=== PATIENT | female | born 1995 | race Two or more races ===

== ENCOUNTER 2024-03-27 09:32 | Emergency (ER) | payer MEDICAID ==
[~2024-03-27] VITALS: Ht 154.9 cm; Wt 65.3 kg
[2024-03-27 10:41] LABS: Chloride 107 mmol/L (98-107); Potassium 4.2 mmol/L (3.5-5.1); Sodium 138 mmol/L (136-145)
[2024-03-27 10:42] LABS: Anion Gap 2 (5-15); Carbon Dioxide 29 mmol/L (20-30)
[2024-03-27 10:43] LABS: Calcium 9.7 mg/dL (8.5-10.1)
[2024-03-27 10:47] LABS: BUN/Creatinine Ratio 17.2 (10.0-20.0); Blood Urea Nitrogen 11 mg/dL (9-23); Glucose 94 mg/dL (74-106)
[2024-03-27 11:02] LABS: Urine Bacteria FEW /hpf (None Seen); Urine Blood 1+ /uL (Negative); Urine Clarity Clear (Clear); Urine Color Light-Yellow (Yellow); Urine Mucus FEW (None Seen); Urine Protein, UAD Negative (Negative); Urine Specific Gravity 1.023 (1.001-1.035); Urine Urobilinogen Normal (Negative); Urine WBC 5 /hpf (0 - 5)
[2024-03-27 11:43] LABS: Basophils # (auto) 0 10 ^3/uL (0-0.2); Basophils % (auto) 0.9 % (0.0-2.0); Eosinophils # (auto) 0.5 10 ^3/uL (0-0.8); Hematocrit 39.8 % (36.0-46.0); Hemoglobin 13.5 g/dL (12.2-16.2); Lymphocytes # (auto) 1.5 10 ^3/uL (0.4-5.4); Lymphocytes % (auto) 28.5 % (10.0-50.0); Mean Corpuscular Hemoglobin 30.3 pg (28.0-32.0); Mean Corpuscular Volume 88.9 fL (80.0-100.0); Monocytes # (auto) 0.4 10 ^3/uL (0-1.3); Monocytes % (auto) 8.1 % (0.0-12.0); Neutrophils # (auto) 2.8 10 ^3/uL (1.6-8.6); Neutrophils % (auto) 52.5 % (37.0-80.0); Nucleated Red Blood Cells % 0.2 %; Red Blood Cells 4.48 10^6/uL (4.0-5.20); White Blood Cell 5.3 10^3/uL (4.4-10.8)
[2024-03-27] MEDS ORDERED: HYDR25SU21 PR (13:11)
[2024-03-27 13:37] VITALS: BP 115/72; PULSE 79; RESP 19; TEMP 98.1; O2SAT 100
== END 2024-03-27 13:39 | disposition home or self-care (01) ==
LOC: ER 09:32
DX: K92.2 Gastrointestinal hemorrhage, unspecified (principal); K64.9 Unspecified hemorrhoids; Z32.02 Encounter for pregnancy test, result negative
CPT/HCPCS: 36415; 74176; 80048; 81001; 81025; 85025

== ENCOUNTER 2024-05-09 18:10 | Inpatient (IN) | payer MEDICAID ==
[~2024-05-09] VITALS: Ht 154.9 cm; Wt 68.0 kg
[~2024-05-09 18:10] MED LIST: HYDR25SU21 PR
[2024-05-09 18:58] LABS: Urine Bacteria MOD /hpf (None Seen); Urine Blood 2+ /uL (Negative); Urine Clarity Turbid (Clear); Urine Color Light-Orange (Yellow); Urine Mucus FEW (None Seen); Urine Protein, UAD 1+ (Negative); Urine Specific Gravity 1.018 (1.001-1.035); Urine Urobilinogen Normal (Negative); Urine WBC 27 /hpf (0 - 5)
[2024-05-09 19:30] LABS: Basophils # (auto) 0.1 10 ^3/uL (0-0.2); Basophils % (auto) 0.4 % (0.0-2.0); Eosinophils % (auto) 14.9 % (0.0-7.0); Hemoglobin 13.1 g/dL (12.2-16.2); Lymphocytes # (auto) 1.8 10 ^3/uL (0.4-5.4); Lymphocytes % (auto) 13.9 % (10.0-50.0); Mean Corpuscular Hgb Conc. 34.6 g/dL (32.0-36.0); Mean Corpuscular Volume 86.8 fL (80.0-100.0); Monocytes # (auto) 0.5 10 ^3/uL (0-1.3); Monocytes % (auto) 4.1 % (0.0-12.0); Neutrophils # (auto) 8.8 10 ^3/uL (1.6-8.6); Neutrophils % (auto) 66.7 % (37.0-80.0); Nucleated Red Blood Cells % 0.2 %; Red Blood Cells 4.37 10^6/uL (4.0-5.20); Red Cell Distribution Width 13.2 % (11.8-14.3); White Blood Cell 13.3 10^3/uL (4.4-10.8)
[2024-05-09 19:34] LABS: Chloride 101 mmol/L (98-107); Potassium 3.5 mmol/L (3.5-5.1); Sodium 134 mmol/L (136-145)
[2024-05-09 19:35] LABS: Anion Gap 7 (5-15); Calcium 8.9 mg/dL (8.7-10.4); Carbon Dioxide 26 mmol/L (20-30)
[2024-05-09 19:40] LABS: Glucose 94 mg/dL (74-106)
[2024-05-09 19:47] LABS: BUN/Creatinine Ratio 8.5 (10.0-20.0); Blood Urea Nitrogen < 5 mg/dL (9-23)
[2024-05-09 21:15] VITALS: PULSE 115; RESP 20; O2SAT 97
[2024-05-09] MEDS: LACTATED RINGER'S 1,000 ML IV ONE (21:15)
[2024-05-09] MEDS: metroNIDAZOLE 500MG/100ML 100 ML IV SCH (21:15)
[2024-05-09] MEDS ORDERED: ONDANSETRON HCL 4 MG/2 ML VIAL IV PRN (21:15)
[2024-05-09] MEDS: HYDROcodone-ACET 5/325MG TAB PO PRN (21:27)
[2024-05-09] MEDS: cefTRIAXone 1GM/50ML D5W 50 ML IV ONE (22:26)
[2024-05-09] MEDS: SODIUM CHLORIDE 0.9% 1,000 ML IV ONE (22:26)
[2024-05-09] MEDS: SODIUM CHLOR 0.9% PF (SALINE LOCK) 10ML VIAL/SYR IV SCH (22:26)
[2024-05-09] MEDS: IOHEXOL 300 MG/ML 100ML BOTTLE IJ ONE (22:51)
[2024-05-09] MEDS: metroNIDAZOLE 500MG/100ML 100 ML IV ONE (23:13)
[2024-05-09 23:33] VITALS: PULSE 99; RESP 18
[2024-05-10] MEDS: HYDROmorphone HCL 2 MG/ML VL/or syr IV PRN (00:34)
[2024-05-10 01:00] VITALS: BP 105/66; PULSE 92; RESP 16; TEMP 98.4; O2SAT 99
[2024-05-10 05:00] VITALS: BP 91/57; PULSE 101; RESP 17; TEMP 98.6; O2SAT 97
[2024-05-10 08:44] VITALS: BP 101/56; PULSE 99; RESP 17; TEMP 97.5; O2SAT 95
[2024-05-10] MEDS: cefTRIAXone 1GM/50ML D5W 50 ML IV SCH (09:27)
[2024-05-10] MEDS: ENOXAPARIN SOD 40 MG/0.4 ML SYRINGE SC SCH (09:28)
[2024-05-10 12:52] VITALS: BP 95/53; PULSE 99; RESP 17; TEMP 98.4; O2SAT 100
[2024-05-10 13:56] LABS: Erythrocyte Sedimentation Rate 36 mm/hr (0-20)
[2024-05-10] MEDS ORDERED: IBUPROFEN 400 MG TAB PO PRN (16:15)
[2024-05-10] MEDS: SODIUM CHLORIDE 0.9% 1,000 ML IV ONE (16:41)
[2024-05-10 16:45] LABS: Albumin 3.1 g/dL (3.2-4.8); Alkaline Phosphatase 54 U/L (46-116); Anion Gap 9 (5-15); Aspartate Aminotransferase < 8 U/L (13-40); Calcium 7.8 mg/dL (8.7-10.4); Carbon Dioxide 23 mmol/L (20-30); Chloride 104 mmol/L (98-107); Glucose 78 mg/dL (74-106); Potassium 3.5 mmol/L (3.5-5.1); Sodium 136 mmol/L (136-145)
[2024-05-10 16:46] LABS: Alanine Aminotransferase < 9 U/L (7-40); BUN/Creatinine Ratio 10.4 (10.0-20.0); Bilirubin, Total 0.3 mg/dL (0.2-1.0); Blood Urea Nitrogen < 5 mg/dL (9-23); Total Protein 5.5 g/dL (5.7-8.2)
[2024-05-10 17:18] VITALS: BP 94/52; PULSE 93; RESP 15; TEMP 98.7; O2SAT 94
[2024-05-10] MEDS: KETOROLAC TROMETH 30 MG/ML 1ML VIAL IV PRN (18:50)
[2024-05-10 21:00] VITALS: BP 97/58; PULSE 89; RESP 16; TEMP 98.1; O2SAT 97
[2024-05-10 22:08] LABS: COVID19 ANTIGEN SOFIA FIA NEGATIVE (NEGATIVE)
[2024-05-10] MEDS: metroNIDAZOLE 500MG/100ML 100 ML IV SCH (23:46)
[2024-05-11] VITALS (7 sets, daily range): BP systolic 94–99; BP diastolic 48–59; PULSE 83–128; RESP 16–20; TEMP 98.2–101.2; O2SAT 94–100
[2024-05-11 00:28] LABS: Amphetamine Screen, Urine Neg (NEGATIVE); Barbiturate Scree,Urine Neg (NEGATIVE); Benzodiazephine Screen, Urine Neg (NEGATIVE); Cocaine Screen, Urine Neg (NEGATIVE); Opiate Scree,Urine Neg (NEGATIVE)
[2024-05-11 00:29] LABS: Cannabinoid Screen, Urine Pos (NEGATIVE); Phencyclidine Screen, Urine Neg (NEGATIVE)
[2024-05-11 07:28] LABS: Anion Gap 8 (5-15); Calcium 7.9 mg/dL (8.7-10.4); Carbon Dioxide 24 mmol/L (20-30); Chloride 107 mmol/L (98-107); Potassium 3.3 mmol/L (3.5-5.1); Sodium 139 mmol/L (136-145)
[2024-05-11 07:34] LABS: Glucose 71 mg/dL (74-106)
[2024-05-11 07:42] LABS: Hematocrit 29.2 % (36.0-46.0); Hemoglobin 10.2 g/dL (12.2-16.2); Mean Corpuscular Hemoglobin 30.4 pg (28.0-32.0); Mean Corpuscular Hgb Conc. 34.9 g/dL (32.0-36.0); Mean Corpuscular Volume 86.9 fL (80.0-100.0); Red Blood Cells 3.36 10^6/uL (4.0-5.20); Red Cell Distribution Width 12.9 % (11.8-14.3); White Blood Cell 8.3 10^3/uL (4.4-10.8)
[2024-05-11 07:44] LABS: BUN/Creatinine Ratio 10.2 (10.0-20.0); Blood Urea Nitrogen < 5 mg/dL (9-23)
[2024-05-11 07:59] LABS: Band Neutrophils % (manual) 0; Basophils % (manual) 0 (0.0-2.0); Blast Cells 0; Metamyelocytes % 0; Myelocytes % 0; Promyelocytes % 0; Reactive Lymphocytes 0
[2024-05-11 09:55] LABS: Hepatitis B Surface Antigen Negative (Negative)
[2024-05-11 10:16] LABS: Hepatitis A Ab IgM Negative; Hepatitis B Core IgM Negative
[2024-05-11 10:17] LABS: Hepatitis C Antibody Negative (Negative)
[2024-05-11] MEDS: PANTOPRAZOLE 40 MG TAB PO ONE (11:03)
[2024-05-11] MEDS: POTASSIUM CHLORIDE 8 MEQ TAB PO ONE (11:04)
[2024-05-11] MEDS: MORPHINE SULFATE INJ 2 MG/ml SYRG IV PRN (11:05)
[2024-05-11 12:05] LABS: Eosinophils % (manual) 14 (0-7); Lymphocytes % (manual) 10 (10.0-50.0); Monocytes % (manual) 6 (0-12)
[2024-05-11 12:06] LABS: Platelet Estimate Adequate
[2024-05-11] MEDS: PANTOPRAZOLE 40 MG TAB PO SCH (17:09)
[2024-05-11] MEDS: CYANOCOBALAMIN (B-12) 1000 MCG/1 ML VIAL IM ONE (17:09)
[2024-05-11] MEDS: ERGOCALCIFEROL 50,000 UNIT(1.25MG) CAP PO SCH (17:09)
[2024-05-11] MEDS: POTASSIUM CHL 10 Meq TABLET PO ONE (17:09)
[2024-05-11] MEDS: ACETAMINOPHEN 325 MG TAB PO PRN (20:15)
[2024-05-12 01:00] VITALS: BP 95/58; PULSE 99; RESP 18; TEMP 98.1; O2SAT 99
[2024-05-12 05:00] VITALS: BP 92/56; PULSE 97; RESP 16; TEMP 98.4; O2SAT 98
[2024-05-12 07:33] LABS: Anion Gap 9 (5-15); Carbon Dioxide 20 mmol/L (20-30); Chloride 109 mmol/L (98-107); Potassium 3.5 mmol/L (3.5-5.1); Sodium 138 mmol/L (136-145)
[2024-05-12 07:34] LABS: Calcium 8.1 mg/dL (8.7-10.4)
[2024-05-12 07:39] LABS: Glucose 76 mg/dL (74-106)
[2024-05-12 07:43] LABS: Basophils # (auto) 0 10 ^3/uL (0-0.2); Basophils % (auto) 0.5 % (0.0-2.0); Eosinophils # (auto) 1.5 10 ^3/uL (0-0.8); Hemoglobin 10.6 g/dL (12.2-16.2); Lymphocytes # (auto) 0.8 10 ^3/uL (0.4-5.4); Mean Corpuscular Hgb Conc. 34.2 g/dL (32.0-36.0); Mean Corpuscular Volume 87.6 fL (80.0-100.0); Monocytes # (auto) 0.4 10 ^3/uL (0-1.3); Neutrophils # (auto) 4.7 10 ^3/uL (1.6-8.6); Neutrophils % (auto) 62.7 % (37.0-80.0); Nucleated Red Blood Cells % 0.1 %; Red Blood Cells 3.54 10^6/uL (4.0-5.20); Red Cell Distribution Width 13.2 % (11.8-14.3); White Blood Cell 7.4 10^3/uL (4.4-10.8)
[2024-05-12 07:44] LABS: BUN/Creatinine Ratio 10.2 (10.0-20.0); Blood Urea Nitrogen < 5 mg/dL (9-23)
[2024-05-12 07:46] LABS: Eosinophils % (auto) 19.8 % (0.0-7.0)
[2024-05-12 09:00] VITALS: BP 92/59; PULSE 84; RESP 20; TEMP 98; O2SAT 95
[2024-05-12] MEDS: POTASSIUM CHL 10 Meq TABLET PO SCH (09:12)
[2024-05-12 13:00] VITALS: BP 95/58; PULSE 90; RESP 20; TEMP 97.8; O2SAT 100
[2024-05-12] MEDS: CALCIUM GLUC 1,000mg/50ml-NS 50 ML IV ONE (14:52)
[2024-05-12 17:00] VITALS: BP 103/60; PULSE 89; RESP 20; TEMP 97.8; O2SAT 99
[2024-05-12] MEDS: GOLYTELY 4L KIT PO ONE (18:44)
[2024-05-12 21:00] VITALS: BP 99/63; PULSE 100; RESP 20; TEMP 97.6; O2SAT 99
[2024-05-13] VITALS (7 sets, daily range): BP systolic 91–106; BP diastolic 59–70; PULSE 84–104; RESP 16–20; TEMP 97.6–98.1; O2SAT 95–100
[2024-05-13] MEDS: MAGNESIUM CITRATE SOLUTION 300 ML BTL PO ONE (05:37)
[2024-05-13] MEDS: GOLYTELY 4L KIT PO ONE (05:38)
[2024-05-13 07:51] LABS: INR 1.12 (0.9-1.15); Partial Thromboplastin Time 23.4 SEC (24.5-34.5); Prothrombin Time 11.8 sec (9.3-11.8)
[2024-05-13 08:05] LABS: Chloride 105 mmol/L (98-107); Potassium 3.3 mmol/L (3.5-5.1); Sodium 138 mmol/L (136-145)
[2024-05-13 08:06] LABS: Anion Gap 14 (5-15); Carbon Dioxide 19 mmol/L (20-30)
[2024-05-13 08:11] LABS: Glucose 69 mg/dL (74-106)
[2024-05-13 08:18] LABS: Erythrocyte Sedimentation Rate 43 mm/hr (0-20)
[2024-05-13 08:20] LABS: BUN/Creatinine Ratio 10.4 (10.0-20.0); Blood Urea Nitrogen < 5 mg/dL (9-23)
[2024-05-13 08:22] LABS: CRP High Sensitivity 5.22 mg/dL (<1.0)
[2024-05-13] MEDS: CYANOCOBALAMIN 500 MCG TAB PO SCH (10:00)
[2024-05-13] MEDS: FLORASTOR (S. BOULARDII) 250 MG CAP PO SCH ×2 (10:34→10:37)
[2024-05-13] MEDS: MAGNESIUM SULFATE 1GM/100ML 100 ML IV ONE (11:00)
[2024-05-13] MEDS ORDERED: LIDOCAINE VISCOUS 2% 15ML UD ONE (11:29)
[2024-05-13] MEDS ORDERED: fentaNYL CITRATE 100 MCG/2 ML VL ONE (12:21)
[2024-05-13] MEDS ORDERED: MIDAZOLAM HCL 2MG/2ML 2ml VIAL (1mg/ml) ONE (12:21)
[2024-05-13] MEDS ORDERED: DexAMETHasone SOD PHOS 10MG/1ML VIAL INJ ONE (12:35)
[2024-05-13] MEDS ORDERED: PROPOFOL 10 MG/ML 20 ML IV ONE (12:35)
[2024-05-13] MEDS ORDERED: MORPHINE SULFATE 4 MG/ML SYR/VIAL IV PRN (12:45)
[2024-05-13] MEDS ORDERED: ePHEDrine SULFATE 50 MG/ML AMP IV PRN (12:45)
[2024-05-13] MEDS ORDERED: MIDAZOLAM HCL 2MG/2ML 2ml VIAL (1mg/ml) IV PRN (12:45)
[2024-05-13] MEDS ORDERED: HYDROmorphone HCL 2 MG/ML VL/or syr IV PRN (12:45)
[2024-05-13] MEDS: ONDANSETRON HCL 4 MG/2 ML VIAL IV ONE (13:42)
[2024-05-13] MEDS: MESALAMINE 400mg Delayed Release Cap PO SCH (15:29)
[2024-05-13] MEDS ORDERED: ERGO1CAP23 PO (15:59)
[2024-05-13] MEDS ORDERED: ACET-1882 PO (15:59)
[2024-05-13] MEDS ORDERED: PRED20TA2 PO (15:59)
[2024-05-13] MEDS ORDERED: MESA400C PO (15:59)
[2024-05-13] MEDS ORDERED: SACC250C PO (15:59)
[2024-05-13] MEDS ORDERED: CYAN500T3 PO (15:59)
[2024-05-13] MEDS: POTASSIUM CHL 20MEQ/100ML 100 ML IV SCH (16:46)
[2024-05-13] MEDS ORDERED: CEPH250C PO (16:47)
[2024-05-13] MEDS ORDERED: PHENYLEPHRINE HCL 10 MG/ML VL IV ONE (20:54)
[2024-05-13] MEDS ORDERED: methylPREDNISolone SOD SUCC 40 MG/ML VL IV SCH (22:00)
[2024-05-19 06:42] LABS: Saccharomyces cerevisiae IgA <20.0 Units (0.0-24.9)
== END 2024-05-13 20:55 | disposition home or self-care (01) | DRG 720 ==
LOC: ER 18:20 → OVERFLOW 21:11 → CENTRAL 23:25
PROVIDERS: ADMIT Internal Medicine; ATTEND Internal Medicine
PROC: 0DBL8ZX Excision of Transverse Colon, Via Natural or Artificial Opening Endoscopic, Diagnostic (ICD-10-PCS; 2024-05-13)
PROC: 0DBN8ZX Excision of Sigmoid Colon, Via Natural or Artificial Opening Endoscopic, Diagnostic (ICD-10-PCS; 2024-05-13)
PROC: 0DBM8ZX Excision of Descending Colon, Via Natural or Artificial Opening Endoscopic, Diagnostic (ICD-10-PCS; 2024-05-13)
PROC: 0DBK8ZX Excision of Ascending Colon, Via Natural or Artificial Opening Endoscopic, Diagnostic (ICD-10-PCS; principal; 2024-05-13 12:12)
DX: A41.9 Sepsis, unspecified organism (principal); E83.51 Hypocalcemia; N83.201 Unspecified ovarian cyst, right side; E87.6 Hypokalemia; F17.200 Nicotine dependence, unspecified, uncomplicated; Z20.822 Contact with and (suspected) exposure to COVID-19; K51.90 Ulcerative colitis, unspecified, without complications; K64.8 Other hemorrhoids; Z82.0 Family history of epilepsy and other diseases of the nervous system; Z82.49 Family history of ischemic heart disease and other diseases of the circulatory system
CPT/HCPCS: 36415; 74177; 76856; 80048; 80053; 80074; 80307; 81001; 81025; 82270; 82306; 82607; 82705; 82977; 83036; 83605; 83690; 83735; 83986; 84075; 84443; 84702; 85007; 85025; 85027; 85048; 85610; 85652; 85730; 86141; 86256; 86671; 86850; 86900; 86901; 87040; 87045; 87086; 87177; 87426; 87427; 87493; 96361; 96365; 96367; G0378; J1100; J1885; J2250; J2704; J3480; J3490

== ENCOUNTER → 2024-10-26 | Outpatient (CLI) | payer MEDICAID ==
[~2024-10-26] MED LIST changes: +ACET-1882 PO; +CEPH250C PO; +CYAN500T3 PO; +ERGO1CAP23 PO; -HYDR25SU21 PR; +MESA400C PO; +PRED20TA2 PO; +SACC250C PO
[2024-10-26 12:41] LABS: Basophils # (auto) 0 10 ^3/uL (0-0.2); Basophils % (auto) 0.5 % (0.0-2.0); Monocytes # (auto) 0.3 10 ^3/uL (0-1.3); Neutrophils # (auto) 5.5 10 ^3/uL (1.6-8.6)
[2024-10-26 12:43] LABS: Eosinophils # (auto) 0.3 10 ^3/uL (0-0.8); Eosinophils % (auto) 4.6 % (0.0-7.0); Hematocrit 25.9 % (36.0-46.0); Hemoglobin 8.4 g/dL (12.2-16.2); Lymphocytes # (auto) 0.9 10 ^3/uL (0.4-5.4); Lymphocytes % (auto) 13.2 % (10.0-50.0); Mean Corpuscular Hemoglobin 23.8 pg (28.0-32.0); Mean Corpuscular Hgb Conc. 32.3 g/dL (32.0-36.0); Mean Corpuscular Volume 73.6 fL (80.0-100.0); Monocytes % (auto) 4.2 % (0.0-12.0); Neutrophils % (auto) 77.5 % (37.0-80.0); Nucleated Red Blood Cells % 0.2 %; Platelet Count (auto) 492 10^3/uL (140-450); Red Blood Cells 3.52 10^6/uL (4.0-5.20); Red Cell Distribution Width 17.6 % (11.8-14.3); White Blood Cell 7.1 10^3/uL (4.4-10.8)
[2024-10-26 12:50] LABS: Urine Bacteria FEW /hpf (None Seen); Urine Blood TRACE /uL (Negative); Urine Clarity Clear (Clear); Urine Color Light-Yellow (Yellow); Urine Mucus FEW (None Seen); Urine Protein, UAD Negative (Negative); Urine Specific Gravity 1.021 (1.001-1.035); Urine Squamous Epithelial Cell FEW /hpf (<5); Urine Urobilinogen Normal (Negative); Urine WBC 2 /hpf (0 - 5); Urine pH 6.5 (5.0-9.0)
[2024-10-26 13:43] LABS: Alkaline Phosphatase 59 U/L (46-116); Anion Gap 7 (5-15); BUN/Creatinine Ratio 11.7 (10.0-20.0); Calcium 9.5 mg/dL (8.7-10.4); Carbon Dioxide 28 mmol/L (20-31); Chloride 106 mmol/L (98-107); Glucose 88 mg/dL (74-106); Potassium 3.5 mmol/L (3.5-5.1); Sodium 141 mmol/L (136-145)
[2024-10-26 13:44] LABS: Albumin 3.7 g/dL (3.2-4.8); Total Protein 6.9 g/dL (5.7-8.2)
[2024-10-26 13:46] LABS: Aspartate Aminotransferase < 8 U/L (13-40); Blood Urea Nitrogen 7 mg/dL (9-23)
[2024-10-26 13:47] LABS: Alanine Aminotransferase < 9 U/L (7-40); Bilirubin, Total 0.3 mg/dL (0.2-1.0)
[2024-10-26 14:00] LABS: CRP High Sensitivity 1.92 mg/dL (<1.0)
[2024-10-27 09:06] LABS: Immunoglobulin A 225 mg/dL (87-352)
[2024-10-28 14:06] LABS: t-Transglutaminase (tTG) IgA <2 U/mL (0-3)
[2024-10-29 05:07] LABS: Endomysial IgA Antibody Negative (Negative)
== END | disposition home or self-care (01) ==
LOC: LAB 11:28
PROVIDERS: ATTEND Internal Medicine Gastroenterology
DX: K51.90 Ulcerative colitis, unspecified, without complications (principal); R19.7 Diarrhea, unspecified
CPT/HCPCS: 36415; 80053; 81001; 82784; 83516; 85025; 86141; 86255; 87086